=== PATIENT | male | born 1975 | race Caucasian/White ===

== ENCOUNTER → 2016-09-17 15:14 | Outpatient (CLI) | payer BC | END | disposition home or self-care (01) | LOC: D.MRI 15:14 | DX: M77.12 Lateral epicondylitis, left elbow (principal) ==

== ENCOUNTER 2016-11-02 06:38 | Day surgery (SDC) | payer BC ==
[~2016-11-02] VITALS: Ht 185.4 cm; Wt 108.9 kg
--- NOTE | ~2016-11-02 | OP ---
PATIENT NAME: KLEBER CARLSON MEDICAL RECORD: [id number] :75 LOCATION:[facility] ADMISSION DATE: SURGEON: DAVID NICOLE MD DATE OF OPERATION: 11/02/2016 PREOPERATIVE DIAGNOSIS: Left lateral epicondylitis. POSTOPERATIVE DIAGNOSIS: Left lateral epicondylitis. PROCEDURE: Left lateral epicondylectomy with debridement and reapproximation. SURGEON: David Nicole MD ANESTHESIA: General. INTRAOPERATIVE COMPLICATIONS: None. SUMMARY OF PATHOLOGIC FINDINGS: The patient had significant tendinosis with detachment of the deep aspect of the extensor mass. OPERATIVE SUMMARY IN DETAIL: After obtaining the appropriate preoperative orthopedic surgery consent as well as anesthetic consultation, evaluation and clearance, the patient was brought to the operating room and placed on the operating table in supine position. After general laryngeal mask was administered, tourniquet was placed about the proximal aspect of the left upper extremity. Left upper extremity was prepped and draped in routine sterile fashion. The arm was elevated and exsanguinated, tourniquet inflated to 250 mmHg. An incision was made directly over the lateral epicondyle, taken down to the level through the extensor masses at the level of the deepest extensor origins. These were debrided and found to actually have some calcific tendinosis with detachment. This was all debrided. A portion of the left lateral epicondyle was then excised. A JuggerKnot was then placed and used for reapproximation of fresh extensor tissue. This was then further closed with #1 Vicryl, 2-0 Vicryl, and 4-0 running Prolene was utilized for final closure. Sterile dressings were applied. Tourniquet was deflated. The patient was awakened, taken to recovery in stable condition. All final needle and sponge counts were correct. TRANSINT:[id number] Voice Confirmation ID: [id number] DOCUMENT ID: [id number] DAVID NICOLE MD CC: [id number] DICTATION DATE: 11/02/16 1020 [employer] OPERATOR: 11/02/16 1144 [facility] [address] [id number]
[~2016-11-02 06:38] MED LIST: RITALIN10 MG PO
[2016-11-02 08:12] VITALS: BP 120/72; Ht 185.4 cm; Wt 108.9 kg
[2016-11-02] MEDS ORDERED: HYDROCODONE-APA1 TAB PO (10:15)
--- NOTE | 2016-11-02 16:06 | NUR ---
3851 PT TOOK BOTH COPIES OF DC INSTRUCTIONS HOME, NO COPY FOR CHART.
--- NOTE | 2016-11-02 16:08 | NUR ---
1240 PT TOOK BOTH COPIES OF DC INSTS HOME. DID GET RX AND DC INSTS.
== END 2016-11-02 12:35 | disposition home or self-care (01) ==
LOC: D.OPS 06:38 → D.PAN 11:00 → D.OPS 12:35
DX: M77.12 Lateral epicondylitis, left elbow (principal); F17.200 Nicotine dependence, unspecified, uncomplicated; K21.9 Gastro-esophageal reflux disease without esophagitis; Z01.812 Encounter for preprocedural laboratory examination

== ENCOUNTER → 2017-10-28 07:42 | Outpatient (CLI) | payer BC ==
[2016-11-02 08:12] VITALS: BMI 31.7
[~2017-10-28 07:42] MED LIST changes: +HYDROCODONE-APA1 TAB PO
== END | disposition home or self-care (01) ==
LOC: D.RAD 07:42
DX: R10.9 Unspecified abdominal pain (principal)

== ENCOUNTER → 2017-11-01 15:18 | Outpatient (CLI) | payer BC ==
[2016-11-02 08:12] VITALS: BMI 31.7
== END | disposition home or self-care (01) ==
LOC: D.CT 15:18
DX: R10.9 Unspecified abdominal pain (principal)